=== PATIENT | female | born 1985 | race Caucasian/White ===

== ENCOUNTER → 2017-10-02 08:37 | Outpatient (CLI) | payer MEDICAID, SELFPAY ==
[2017-10-02 09:11] LABS: Alanine Aminotransferase 55 U/L (12-78); Albumin Level 3.6 gm/dL (3.4-5.0); Albumin/Globulin Ratio 0.9 (1.1-1.8); Alkaline Phosphatase 36 U/L (46-116); Aspartate Amino Transferase 20 U/L (15-37); Bilirubin,Total 0.2 mg/dL (0.2-1.0); Blood Urea Nitrogen 11 mg/dL (7-18); Calcium 8.9 mg/dL (8.5-10.1); Carbon Dioxide 27 mmol/L (21.0-32.0); Chloride 104 mmol/L (98-107); Chol/HDL Ratio 5.9 (1-3.5); Cholesterol 236 mg/dL (140-200); Creatinine,Serum 0.67 mg/dL (0.55-1.02); Estimated Glomerular Filt Rate 101 ml/min (>60); GFR (African American) 123 ML/MIN (>60); Globulin 3.8 gm/dl (1.3-3.2); Glucose 103 mg/dL (74-106); HDL Cholesterol 40 mg/dL (29-89); Sodium 138 mmol/L (136-145); Total Protein,Serum 7.4 gm/dL (6.4-8.2)
[2017-10-02 09:12] LABS: Triglycerides 453 mg/dL (30-200)
== END ==
PROVIDERS: Visit Provider Nurse Practitioner Family
DX: Z00.00 Encounter for general adult medical examination without abnormal findings (principal); L65.9 Nonscarring hair loss, unspecified
CPT/HCPCS: 36415; 80053; 80061; 84443

== ENCOUNTER → 2018-01-20 08:35 | Outpatient (CLI) | payer MEDICAID, SELFPAY ==
[2018-01-20 10:19] LABS: Alanine Aminotransferase 53 U/L (12-78); Albumin Level 3.6 gm/dL (3.4-5.0); Alkaline Phosphatase 43 U/L (46-116); Anion Gap 10.6 mEq/L (5-15); Aspartate Amino Transferase 29 U/L (15-37); Bilirubin,Total 0.2 mg/dL (0.2-1.0); Blood Urea Nitrogen 14 mg/dL (7-18); Calcium 8.8 mg/dL (8.5-10.1); Carbon Dioxide 27 mmol/L (21.0-32.0); Chloride 105 mmol/L (98-107); Chol/HDL Ratio 5.5 (1-3.5); Cholesterol 231 mg/dL (140-200); Estimated Glomerular Filt Rate 96 ml/min (>60); GFR (African American) 117 ML/MIN (>60); Globulin 3.5 gm/dl (1.3-3.2); Glucose 97 mg/dL (74-106); HDL Cholesterol 42 mg/dL (29-89); LDL Cholesterol 123 mg/dL (0-130); Potassium 4.6 mmoL/L (3.5-5.1); Sodium 138 mmol/L (136-145); Total Protein,Serum 7.1 gm/dL (6.4-8.2); Triglycerides 329 mg/dL (30-200); VLDL Cholesterol 66 mg/dL (0-40)
[2018-01-22 17:57] LABS: Hepatitis B Surf Ab Quant 39.5 mIU/mL (Immunity>9.9); Mumps Abs, IgG 64.8 AU/mL (Immune >10.9); Rubella Antibodies, IgG 2.55 index (Immune >0.99); Varicella Zoster IgG 2288 index (Immune >165)
== END ==
PROVIDERS: Visit Provider Nurse Practitioner Family
DX: E78.2 Mixed hyperlipidemia (principal); Z00.00 Encounter for general adult medical examination without abnormal findings; Z11.59 Encounter for screening for other viral diseases
CPT/HCPCS: 36415; 80053; 80061; 86706; 86735; 86762; 86765; 86787

== ENCOUNTER → 2019-06-04 07:53 | Outpatient (CLI) | payer OTHER, SELFPAY ==
[2019-06-04 11:34] LABS: Alanine Aminotransferase 77 U/L (12-78); Albumin Level 3.6 gm/dL (3.4-5.0); Albumin/Globulin Ratio 1.1 (1.1-1.8); Alkaline Phosphatase 42 U/L (46-116); Anion Gap 14.6 mEq/L (5-15); Aspartate Amino Transferase 48 U/L (15-37); Bilirubin,Total 0.3 mg/dL (0.2-1.0); Blood Urea Nitrogen 13 mg/dL (7-18); Calcium 8.6 mg/dL (8.5-10.1); Carbon Dioxide 26 mmol/L (21.0-32.0); Chloride 102 mmol/L (98-107); Chol/HDL Ratio 4.6 (1-3.5); Cholesterol 202 mg/dL (140-200); Creatinine,Serum 0.67 mg/dL (0.55-1.02); Estimated Glomerular Filt Rate 100 ml/min (>60); GFR (African American) 121 ML/MIN (>60); Globulin 3.4 gm/dl (1.3-3.2); Glucose 95 mg/dL (74-106); HDL Cholesterol 44 mg/dL (29-89); LDL Cholesterol 111 mg/dL (0-130); Potassium 4.6 mmoL/L (3.5-5.1); Sodium 138 mmol/L (136-145); Triglycerides 236 mg/dL (30-200); VLDL Cholesterol 47 mg/dL (0-40)
== END ==
PROVIDERS: Visit Provider Nurse Practitioner Family
DX: Z00.00 Encounter for general adult medical examination without abnormal findings (principal)
CPT/HCPCS: 36415; 80053; 80061

== ENCOUNTER → 2019-08-23 08:24 | Outpatient (CLI) | payer OTHER, SELFPAY ==
[2019-08-23 09:46] LABS: Hemoglobin A1C 6.4 % (0.0-7.0)
[2019-08-24 09:22] LABS: DHEA-Sulfate 92.1 ug/dL (57.3-279.2); Prolactin 11.2 ng/mL (4.8-23.3)
[2019-08-24 16:30] LABS: FSH 3.8 mIU/mL (.); Hep B Surface Ab, Qual Reactive (.); Hepatitis C Antibody <0.1 s/co ratio (0.0-0.9); Insulin Level Total 42.1 uIU/mL (2.6-24.9); LH 4.1 mIU/mL (.); Rapid Plasma Reagin Ab Titer Non Reactive (NonRea<1:1)
[2019-08-25 10:28] LABS: HIV Screen 4th Generation wRfx Non Reactive (Non Reactive); Testosterone,Free 3.9 pg/mL (0.0-4.2)
[2019-08-26 10:47] LABS: Testosterone, Total, LC/MS 22.6 ng/dL (10.0-55.0)
== END ==
PROVIDERS: Visit Provider Nurse Practitioner
DX: Z11.3 Encounter for screening for infections with a predominantly sexual mode of transmission (principal)
CPT/HCPCS: 36415; 82626; 83001; 83002; 83036; 83498; 83525; 84144; 84146; 84402; 84403; 86592; 86703; 86706; 87380; G0432

== ENCOUNTER 2020-08-11 00:17 | Emergency (ER) | payer OTHER, SELFPAY ==
[2020-08-11 00:18] VITALS: BP 114/74; PULSE 105; RESP 14; TEMP 36.6; O2SAT 100; BMI 29.9
[2020-08-11 00:53] LABS: Basophils # 0.1 K/mm3 (0-0.2); Basophils % 0.9 % (0.1-2.0); Eosinophils # 0.2 K/mm3 (0.0-0.4); Eosinophils % 2.9 % (0.1-12.0); Hematocrit 40.3 % (37.0-47.0); Hemoglobin 13.4 g/dL (12.2-16.2); Lymphocytes # 2.6 K/mm3 (0.7-4.5); Lymphocytes % 31.1 % (10-50); Mean Corpuscular HGB Conc 33.3 g/dL (31.8-35.4); Monocytes # 0.3 K/mm3 (0.1-1.0); Monocytes % 3.2 % (1.7-9.3); Neutrophils # 5.1 K/mm3 (1.8-7.8); Neutrophils % 61.9 % (37.0-80.0); Platelet Count 431 K/mm3 (142-424); Red Blood Count 4.64 M/mm3 (4.20-5.40); Red Cell Distribution Width 13.5 % (11.5-17.5); White Blood Count 8.3 K/mm3 (4.8-10.8)
--- NOTE | 2020-08-11 00:55 | HMH.EDLOEX ---
ED Disposition Clinical Impression: Phlebitis of right lower extremity, Elevated d-dimer, COVID-19 Disposition: Home, Self-Care Condition on Discharge: Good Instructions: DI for Deep Vein Thrombosis Additional Instructions: will do doppler in am and call pcp for follow up Referrals: Maxime Peña MD [Primary Care Provider] - - Critical Care Critical Care Time: No Attestation: On 08/11/20, the high probability of a clinically significant, sudden or life threatening deterioration of the following system(s) required my full and direct attention, intervention and personal management. The time I documented below is in addition to time spent performing reported procedures but includes the following listed in this critical care notation. Medical Decision Making - Medical Records Medical records reviewed: Yes: I reviewed the patient's medical records. - [place] Inquiry Pt receiving controlled substance: No Vital Signs: 08/11/20 00:18 Temperature 97.8 F Temperature Source Oral Pulse Rate [Right] 105 H Respiratory Rate 14 Blood Pressure [Right Arm] 114/74 Blood Pressure Mean [Right Arm] 87 02 Sat by Pulse Oximetry 100 - Lab Data Lab results reviewed: Yes: I reviewed the patient's lab results. Lab Results 08/11/20 00:45: WBC 8.3, RBC 4.64, Hgb 13.4, Hct 40.3, MCV 87.0, MCH 29.0, MCHC 33.3, RDW 13.5, Plt Count 431 H, MPV 7.0 L, Neut % (Auto) 61.9, Lymph % (Auto) 31.1, [place] % (Auto) 3.2, Eos % (Auto) 2.9, Baso % (Auto) 0.9, Neut # (Auto) 5.1, Lymph # (Auto) 2.6, [place] # (Auto) 0.3, Eos # (Auto) 0.2, Baso # (Auto) 0.1, ESR 90 H 08/11/20 00:45: D-Dimer 1.50 H 08/11/20 00:45: Sodium 141, Potassium 3.6, Chloride 102, Carbon Dioxide 28, Anion Gap 14.6, BUN 12, Creatinine 0.70, Estimated Creat Clear 143, Estimated GFR 95, Est GFR ( Amer) 115, Glucose 133 H, Calcium 9.7, Total Bilirubin 0.3, AST 62 H, ALT 68, Alkaline Phosphatase 34 L, C-Reactive Protein 42.6 H, Total Protein 8.9 H, Albumin 4.7, Globulin 4.2 H, Albumin/Globulin Ratio 1.1, Procalcitonin 0.043 08/11/20 00:45: Serum HCG, Qual Negative Result diagrams: 08/11/20 00:45 08/11/20 00:45 Orders (Tests/Meds): ED MEDICATIONS Generic Name Dose Route Start Last Admin Trade Name Freq PRN Reason Stop Dose Admin Sodium Chloride 1,000 mls @ 999 mls/hr 08/11/20 01:15 Sod Chlor 0.9% 1000ml Bag IV 08/11/20 02:15 .[id number] NIKO Discontinued Medications Generic Name Dose Route Start Last Admin Trade Name Freq PRN Reason Stop Dose Admin Iopamidol 70 ml 08/11/20 03:02 08/11/20 03:04 Iopamidol-370 (76%);100ml Bottle IV 08/11/20 03:03 70 ml ONCE ONE Administration Sodium Chloride 40 ml 08/11/20 03:02 08/11/20 03:04 0.9 % Sodium Chloride 50 Ml Vial IV 08/11/20 03:03 40 ml ONCE ONE Administration Sodium Chloride 10 ml 08/11/20 03:02 08/11/20 03:04 Sodium Chloride 0.9% 10ml Syr (Rad Only) IV 08/11/20 03:03 10 ml ONCE ONE Administration ORDERS Category Date Time Status CT Chest w/PE protocol [CT angio chest] Stat Cat Scan 08/11/20 01:05 Taken - CT Data CT Scan: Chest Time Received: 03:[address] Reviewed: Yes: I have viewed the radiologist's interpretation Preliminary Findings: Abnormal (no pul emboli ) Medical Decision Narrative: has covid-19 and tender area on rt lower leg with elevated d-dimer and neg pe on ct - will arrange for doppler in am Lower Extremity Injury HPI - General Chief Complaint: Extremity Injury, Lower Stated Complaint: pain,tendrness in right leg,covid pos Time Seen by Provider: 08/11/20 00:30 Mode of Arrival: Ambulatory Source of Information: Patient, Medical Record Limitations: No Limitations Description of Symptoms (Recalled from ER Triage Doc. by RN): pt c/o RLE pain that started a hour ago - History of Present Illness HPI Narrative: recent dx of covid-19 on 1/23 has been in bed and has sob claudia over the last few days - noted area on rt lower leg tonight - concern for d
[2020-08-11 01:05] LABS: Alanine Aminotransferase 68 U/L (12-78); Albumin Level 4.7 g/dl (3.5-5.0); Albumin/Globulin Ratio 1.1 (1.1-1.8); Alkaline Phosphatase 34 U/L (38-126); Aspartate Amino Transferase 62 U/L (14-36); Bilirubin,Total 0.3 mg/dl (0.2-1.3); Blood Urea Nitrogen 12 mg/dl (7-17); Calcium 9.7 mg/dl (8.4-10.2); Chloride 102 mmol/L (98-107); Creatinine Clearance Estimated 143 mL/min (50-200); Estimated Glomerular Filt Rate 95 ml/min (>60); GFR (African American) 115 ML/MIN (>60); Globulin 4.2 g/dL (1.3-3.2); Glucose 133 mg/dl (74-100); Potassium 3.6 mmoL/L (3.5-5.1); Sodium 141 mmol/L (136-145); Total Protein,Serum 8.9 g/dl (6.3-8.2)
--- NOTE | 2020-08-11 01:05 | CT_ITS ---
PROCEDURE: CT ANGIO CHEST Referring Doctor: Mo Driscoll Patient Age:35Y CLINCIAL INDICATION: soa. Chest pain. Former smoker Covd 19 positive; also elevated D-dimer with tender area at leg COMPARISON: No exams were available for comparison TECHNIQUE: IV Contrast: 70ML Isovue 370 followed by 40 mL normal saline Helical axial images obtained with thick slab MIP P sagittal and coronal reformats on CT workstation/CTA technique. All CT scans at the facility use one or more dose reduction, viz: automated exposure control, ma/kV adjustment per patient size (including targeted exams where dose is matched to indication, i.e. head), or iterative reconstruction technique. FINDINGS: PULMONARY ARTERIES: No pulmonary embolus evident. Excellent visualization pulmonary arteries AORTA: No acute finding. No thoracic aortic aneurysm or dissection evident LUNGS: /. Very numerous patchy focal areas of infiltrate and consolidation bilaterally. These are most most evident distributed along the periphery of the lower lobes bilaterally with this pattern most evident the lower lobes-This peripheral patchy pneumonia pattern a consistent and suggestive of covd 19 pneumonia.. There also a few smaller focal almost nodular appearing areas of infiltrate of bilaterally-these are most notable at the infrahilar region on left is. Small 5 mm area of nodularity posterior right apex most likely the same process. The periphery of the lung ring on. More evident the lower lobes but seen throughout upper lower lobes hazy airspace disease, somewhat nodular in appearance involving the upper and lower lobes. Of only minor chronic changes with small unimpressive subpleural bleb right middle lobe. PLEURAL SPACES: No significant pleural effusion. No evidence of pneumothorax. HEART: Upper normal to mild cardiomegaly. No significant pericardial effusion. MEDIASTINAL AND HILAR STRUCTURES: No mediastinal or hilar mass evident.. Esophagus unremarkable LYMPH NODES: Nonspecific mild/moderate mediastinal lymphadenopathy which most likely reactive. Nonspecific mild/moderate hilar lymphadenopathy which may be reactive as well., most evident base of left susan. Few minimal nodes at the analisa hepatis region I believe within normal limits but no retrocrural adenopathy lymphadenopathy.. UPPER ABDOMEN: A fatty changes the liver of suggested. Small calcified left lobe reflecting old remote granulomatous infection. Mild gastric distention with fluid and ingested material/gas. Of reflecting recent meal or possibly mild gastro paresis IMPRESSION: No evidence pulmonary embolism Numerous bilateral patchy areas airspace and consolidation -pattern would be most compatible with viral/Covd 19 pneumonia. Some [id number] prominence of lymph nodes at the base of left susan more so than right. Also few of small to moderate lymph nodes throughout the mediastinum. These are most likely reactive nodes in this setting . Dictated by: Bebeto De Santiago MD 08/11/2020 22:27 Bebeto De Santiago MD in [place] 08/11/2020 22:27
[2020-08-11 01:07] LABS: Anion Gap 14.6 mEq/L (5-15); Carbon Dioxide 28 mmol/L (22.0-30.0)
[2020-08-11 01:10] LABS: C-Reactive Protein 42.6 mg/L (0-4)
[2020-08-11 01:17] LABS: Erythrocyte Sedimentation Rate 90 mm/hr (0-20)
[2020-08-11 01:24] LABS: Procalcitonin 0.043 ng/mL (0.0-2.0)
[2020-08-11 01:30] LABS: HCG Qualitative, Serum Negative (Negative)
--- NOTE | 2020-08-11 01:46 | PC.NURSE ---
back from ct
--- NOTE | 2020-08-11 03:20 | PC.NURSE ---
Lovenox dose per [facility]
[2020-08-11 03:23] VITALS: BP 122/76; PULSE 94; RESP 16; TEMP 36.6; O2SAT 100
== END 2020-08-11 03:29 | disposition home or self-care (01) ==
PROVIDERS: Emergency Provider Emergency Medicine; PCP Internal Medicine Adolescent Medicine
DX: I80.3 Phlebitis and thrombophlebitis of lower extremities, unspecified (principal); U07.1 COVID-19; R79.89 Other specified abnormal findings of blood chemistry; Z87.891 Personal history of nicotine dependence
CPT/HCPCS: 71275; 80053; 84145; 84703; 85025; 85378; 85651; 86140; 96365; 96372; 99283; Q9967

== ENCOUNTER → 2020-08-11 15:06 | Outpatient (CLI) | payer OTHER, SELFPAY ==
--- NOTE | 2020-08-11 | CA_ITS ---
APPROVED REPORT Right Lower Extremity Venous Study for DVT. 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 Indications Lower Extremity Pain: Right Vein Imaging CFV (R): compressive, spontaneous, phasic, augmentation SFJ (R): compressive, spontaneous, phasic, augmentation FEM (R): compressive, spontaneous, phasic, augmentation POP (R): compressive, spontaneous, phasic, augmentation DFV (R): compressive, spontaneous, phasic, augmentation PTV (R): compressive, spontaneous, phasic, augmentation GSV (R): Partially Compressible SSV (R): Partially Compressible Peroneals (R):compressive, spontaneous, phasic, augmentation GAS (R): compressive, spontaneous, phasic, augmentation Findings RLE negative for DVT Positive for SVT in GSV, LSV. Conclusion RLE negative for DVT Positive for SVT in GSV, LSV. Electronically signed by : Bebeto De Santiago MD 08/11/2020 23:06:13
== END ==
PROVIDERS: PCP Internal Medicine Adolescent Medicine; Visit Provider Emergency Medicine
DX: M79.604 Pain in right leg (principal); J44.9 Chronic obstructive pulmonary disease, unspecified
CPT/HCPCS: 93971

== ENCOUNTER → 2020-08-14 16:01 | Outpatient (CLI) | payer OTHER, SELFPAY ==
[2020-08-14 16:55] LABS: Hemoglobin A1C 5.7 % (4.0-6.0)
[2020-08-14 16:57] LABS: Chol/HDL Ratio 5.7 (1-3.5); Cholesterol 227 mg/dl (140-200); HDL Cholesterol 40 mg/dl (40-60); Triglycerides 323 mg/dl (30-150); VLDL Cholesterol 65 mg/dL (0-40)
[2020-08-14 17:08] LABS: Direct LDL Cholesterol 113.18 mg/dL (100-129)
== END ==
PROVIDERS: Visit Provider Internal Medicine Adolescent Medicine
DX: R73.09 Other abnormal glucose (principal)
CPT/HCPCS: 36415; 80061; 83036

== ENCOUNTER → 2020-12-08 10:09 | Outpatient (CLI) | payer OTHER, SELFPAY ==
[2020-12-08 12:29] LABS: Alanine Aminotransferase 39 U/L (12-78); Albumin Level 4.3 g/dl (3.5-5.0); Albumin/Globulin Ratio 1.4 (1.1-1.8); Alkaline Phosphatase 39 U/L (38-126); Anion Gap 10.8 mEq/L (5-15); Aspartate Amino Transferase 35 U/L (14-36); Bilirubin,Total 0.5 mg/dl (0.2-1.3); Blood Urea Nitrogen 13 mg/dl (7-17); Calcium 9.1 mg/dl (8.4-10.2); Carbon Dioxide 26 mmol/L (22.0-30.0); Chloride 109 mmol/L (98-107); Chol/HDL Ratio 5.9 (1-3.5); Cholesterol 249 mg/dl (140-200); Estimated Glomerular Filt Rate 113 ml/min (>60); GFR (African American) 137 ML/MIN (>60); Glucose 99 mg/dl (74-100); HDL Cholesterol 42 mg/dl (40-60); Magnesium 2.1 mg/dl (1.6-2.3); Potassium 4.8 mmoL/L (3.5-5.1); Sodium 141 mmol/L (136-145); Total Protein,Serum 7.3 g/dl (6.3-8.2)
[2020-12-08 12:31] LABS: Triglycerides 451 mg/dl (30-150)
[2020-12-08 12:40] LABS: Direct LDL Cholesterol 121.14 mg/dL (100-129)
[2020-12-08 12:47] LABS: Free Thyroxine Index 2.4 ug/dL (5.93-13.13); T4 (Thyroxine) 8.1 ug/dl (5.53-11.0); Triiodothryronine (T3) Uptake 30 % (23.5-40.5)
[2020-12-08 13:00] LABS: Thyroid Stimulating Hormone 1.03 uIU/mL (0.465-4.68)
[2020-12-08 13:01] LABS: Thyroid Stimulating Hormone 1.01 uIU/mL (0.465-4.68)
== END ==
PROVIDERS: Visit Provider Internal Medicine Adolescent Medicine
DX: E78.2 Mixed hyperlipidemia (principal); L65.9 Nonscarring hair loss, unspecified; M62.838 Other muscle spasm
CPT/HCPCS: 80053; 80061; 83735; 84436; 84443; 84479

== ENCOUNTER → 2023-03-11 09:54 | Outpatient (CLI) | payer BC, OTHER, SELFPAY ==
--- NOTE | 2023-03-11 10:00 | MM_ITS ---
PROCEDURE INFORMATION: Exam: MG Bilateral Screening 3D Mammography Exam date and time: 03/11/2023 9:57 AM Age: 37 years old Clinical indication: Baseline screening mammogram TECHNIQUE: Imaging protocol: Bilateral Screening tomosynthesis and 2D mammography including computer-aided detection (CAD) when performed. COMPARISON: No relevant prior studies available. FINDINGS: MAMMOGRAPHY: Breast composition: There are scattered areas of fibroglandular density. Mass: None. Architectural distortion: No new or suspicious architectural distortion. Calcifications: No new or suspicious calcifications are present Asymmetric density: No new or suspicious asymmetric density is present Skin thickening: None. Axillary adenopathy: None. IMPRESSION: No mammographic evidence of malignancy. Recommend annual screening mammography unless otherwise clinically indicated. ASSESSMENT: BI-RADS category 1: Negative
== END ==
PROVIDERS: PCP Nurse Practitioner Family; Visit Provider Nurse Practitioner Family
DX: Z12.31 Encounter for screening mammogram for malignant neoplasm of breast (principal); Z80.3 Family history of malignant neoplasm of breast
CPT/HCPCS: 77063; 77067

== ENCOUNTER → 2023-03-23 13:13 | Outpatient (CLI) | payer BC, OTHER, SELFPAY | PROVIDERS: PCP Nurse Practitioner Family; Visit Provider Nurse Practitioner Family | DX: G47.33 Obstructive sleep apnea (adult) (pediatric) (principal); R40.0 Somnolence; R06.83 Snoring; R53.83 Other fatigue; F41.8 Other specified anxiety disorders | CPT/HCPCS: G0399 ==